=== PATIENT | female | born 1950 | race Caucasian/White ===

== ENCOUNTER 2022-07-27 09:44 | Outpatient (CLI) | payer MEDICARE ==
[2022-07-27 12:28] LABS: Mean Corpuscular HGB CONC 32.3 g/dL (32.0-36.0); Mean Corpuscular Hemoglobin 30.4 pg (27.0-33.0); Mean Corpuscular Volume 93.9 fl (81.6-98.3); Mean Platelet Volume 10.8 fl (7.4-10.4); Platelet Count 322 10x3/uL (150-450); RBC Distribution Width 12.4 % (11.5-14.5); Red Blood Cell (RBC) Count 4.28 10x6/uL (3.90-5.03); White Blood Cell (WBC) Count 6.4 10x3/uL (3.5-10.5)
[2022-07-27 12:37] LABS: PTT 27.5 sec (22.0-33.0); Prothrombin Time 10.6 sec (9.5-12.1)
[2022-07-27 12:56] LABS: Anion Gap 15 mmol/L (10-20); BUN (Urea Nitrogen) 10 mg/dL (9.8-20.1); Calc. Creatinine Clearance 0 mL/min (70-130); Calcium 8.9 mg/dL (7.8-10.44); Carbon Dioxide 24 mmol/L (23-31); Chloride 104 mmol/L (98-107); Estimated GFR 94; Glucose 81 mg/dL (80-115); Potassium 4.7 mmol/L (3.5-5.1); Sodium 138 mmol/L (136-145)
== END 2022-07-27 09:45 | disposition home or self-care (01) ==
LOC: LABBT 09:44
PROVIDERS: ATTEND Neurological Surgery
DX: Z01.818 Encounter for other preprocedural examination (principal); M47.12 Other spondylosis with myelopathy, cervical region; M50.021 Cervical disc disorder at C4-C5 level with myelopathy; M50.022 Cervical disc disorder at C5-C6 level with myelopathy; M50.023 Cervical disc disorder at C6-C7 level with myelopathy
CPT/HCPCS: 80048; 85027; 85610; 85730; 93005; 93010

== ENCOUNTER 2022-08-11 05:35 | Day surgery (SDC) | payer MEDICARE ==
[2022-08-10 10:53] VITALS: BMI 32.9
[2022-08-11] MEDS ORDERED: Fentanyl 250 MCG/5 ML VIAL ONE (06:08)
[2022-08-11] MEDS ORDERED: Vancomycin 1 GM VIAL ONE (06:12)
[2022-08-11] MEDS ORDERED: Thrombin 5000 UNITS/5 ML VIAL ONE (06:12)
[2022-08-11] MEDS ORDERED: Sodium Chloride 0.9% 100 ML ONE (06:47)
[2022-08-11] MEDS ORDERED: CEFAZOLIN 2 GM VIAL ONE (06:47)
[2022-08-11] MEDS ORDERED: Midazolam HCl 2 mg/2 ml Vial ONE (06:47)
[2022-08-11] MEDS ORDERED: Famotidine/PF 20 mg/2ml Vial ONE (06:57)
[2022-08-11] MEDS ORDERED: Ondansetron PF 4 MG/2 ML Vial ONE (07:04)
[2022-08-11] MEDS ORDERED: Rocuronium Bromide 10 MG/ML (10ML VIAL) ONE (07:04)
[2022-08-11] MEDS ORDERED: Dexamethasone 20 MG/5 ML VIAL ONE (07:04)
[2022-08-11] MEDS ORDERED: PROPOFOL 200 MG/20 ML VIAL ONE (07:04)
[2022-08-11] MEDS ORDERED: Vecuronium 10 MG VIAL ONE (07:04)
[2022-08-11] MEDS ORDERED: Lidocaine 1% PF 5 ML VIAL ONE (07:04)
[2022-08-11] MEDS ORDERED: PHENYLEPHRINE-NS 100 MCG/ML 10 ML SYRINGE ONE (07:04)
[2022-08-11] MEDS ORDERED: Phenylephrine 10 MG/ML VIAL ONE (08:57)
[2022-08-11] MEDS ORDERED: SUGAMMADEX SODIUM 200 MG/2 ML VIAL ONE (11:04)
[2022-08-11] MEDS ORDERED: HYDROmorphone 2 MG/ML VIAL SLOW IVP PRN (11:41)
[2022-08-11] MEDS ORDERED: Morphine Sulfate 2 MG/ML SYRINGE SLOW IVP PRN (11:41)
[2022-08-11] MEDS ORDERED: Ondansetron HCl/PF 4 MG/2 ML Vial IVP PRN (11:41)
[2022-08-11] MEDS ORDERED: Promethazine HCl 25 MG/ML VIAL IM PRN (11:41)
[2022-08-11] MEDS ORDERED: PACU-Morphine 4MG/ML VIAL SLOW IVP PRN (11:41)
[2022-08-11] MEDS ORDERED: fentaNYL 50 mcg/mL 1 mL Vial ONE ×3 (11:54→13:09)
[2022-08-11] MEDS ORDERED: Cyclobenzaprine 10 MG TAB ONE (14:34)
== END 2022-08-11 14:37 | disposition home or self-care (01) ==
LOC: SDC 05:35
PROVIDERS: ATTEND Neurological Surgery
PROC: 0RG2070 Fusion of 2 or more Cervical Vertebral Joints with Autologous Tissue Substitute, Anterior Approach, Anterior Column, Open Approach (ICD-10-PCS; principal; 2022-08-11)
PROC: 0RG20A0 Fusion of 2 or more Cervical Vertebral Joints with Interbody Fusion Device, Anterior Approach, Anterior Column, Open Approach (ICD-10-PCS; 2022-08-11)
DX: M50.021 Cervical disc disorder at C4-C5 level with myelopathy (principal); M50.121 Cervical disc disorder at C4-C5 level with radiculopathy; E78.00 Pure hypercholesterolemia, unspecified; I10 Essential (primary) hypertension; F41.9 Anxiety disorder, unspecified; Z87.891 Personal history of nicotine dependence; Z79.899 Other long term (current) drug therapy
CPT/HCPCS: 20930; 20936; 22551; 22552 ×2; 22846; 22853 ×3; J3010; C1713; C1768; J1100; J2250; J2370; J2405; J2704; J3370; J3490; S0028